=== PATIENT | male | born 1995 | race Caucasian/White ===

== ENCOUNTER → 2024-02-22 | Outpatient (CLI) | payer SELFPAY ==
[~2024-02-22] MED LIST: BACPOLTO30 TOP; CEPH500 PO; CRUTCH4 USE; Naprosyn500 MG PO; Percocet 5-3251 EACH PO; Veetids 500500 MG PO
[2024-02-25 18:59] LABS: APTIMA MEDIA TYPE Urine; C. TRACHOMATIS BY TMA Negative (Negative); N. GONORRHOEAE BY TMA Negative (Negative); SPECIMEN SOURCE Urine; T. VAGINALIS BY TMA Negative (Negative)
== END | disposition home or self-care (01) ==
LOC: LAB 18:01 → LAB SHORT 18:01
PROVIDERS: Physician Assistant
DX: Z20.9 Contact with and (suspected) exposure to unspecified communicable disease (principal)
CPT/HCPCS: 87491; 87591; 87661